=== PATIENT | female | born 1985 | race Asian ===

== ENCOUNTER 2024-03-05 16:25 | Inpatient (IN) | payer BC, SELFPAY ==
[2024-03-05] VITALS (7 sets, daily range): BP systolic 115–149; BP diastolic 66–99; BMI 27.3; BMI 26.8
--- NOTE | 2024-03-05 14:12 | ED.GENMED ---
History of Present Illness
<Nelly Ramires PA-C - Last Filed: 03/06/24 11:12>
General
Chief Complaint: Abdominal Pain
Source: patient
Exam Limitations: none
Time Seen by Provider: 03/05/24 14:07
Nursing documentation reviewed up to this point in time: agreed with
History of Present Illness
History of Present Illness:
Patient is a 38-year-old female with history hypertension presenting from [facility] for further evaluation of abdominal pain. Patient states that starting on evening she had upper abdominal pain that was intermittent over the
weekend worse after eating. She states that yesterday evening the pain was constant and persisted throughout the night. When she woke up this morning the pain was more severe and she had a few episodes of vomiting. Patient went to the emergency
department at [facility] earlier this morning for evaluation. She had lab work, abdominal ultrasound, and CT scan of abdomen which showed findings consistent with choledocholithiasis and concern for CBD obstruction. She was sent to the
[facility] ED for admission for likely ERCP with Dr. Hunter.
Patient denies any fevers, chills, or urinary symptoms. Patient denies any chest pain or shortness of breath
Patient has no known drug allergies
Review of Systems
<Nelly Ramires PA-C - Last Filed: 03/06/24 11:12>
Review of Systems
Allergies reviewed?: Yes
All Other Systems: ROS reviewed and negative except as documented in HPI and ROS
Phy Exam
<Nlely Ramires PA-C - Last Filed: 03/06/24 11:12>
Physical Exam
Physical Exam:
Vitals: Hypertensive, otherwise vital signs stable. Afebrile
General: Patient is well appearing, no acute distress
Skin: Warm and dry, no rashes or lesions
Head: Normocephalic, atraumatic
Eyes: Sclera nonicteric. EOMs intact. No nystagmus.
Throat: Protecting airway
Neck: Normal ROM, no cervical spine tenderness, no meningismus
Cardiac: Regular rate and rhythm, no murmurs.
Pulm: Normal respiratory effort, no wheezes, rales, rhonchi heard on exam.
Abdomen: Abdomen soft. Moderate epigastric and right upper quadrant abdominal pain without rebound tenderness or guarding. No CVA tenderness
Extremities: No evidence of cyanosis or edema. Great distal pulses
Neuro: AAOx3. CN II-XII intact. No focal neurologic deficits.
Psychiatric: Normal affect.
Course
<Nelly Ramires PA-C - Last Filed: 03/06/24 11:12>
Orders/Labs/Results
Orders:
Orders
03/05/24 Dinner
Clear Liquid
At Your Request: Full Participation
Does patient need a safe tray?: Yes
03/05/24 15:01
0.9% Sodium Chloride 1000 ml [Nss] 1,000 ml IV BOLUS
Ketorolac [Toradol] 15 mg IV NOW STA
03/05/24 16:01
Admit/Transfer Patient As Directed
Co-Sign Provider:
Level of Care: Inpatient admission
Assign to:: Medical/Surgical
Physician / Group: nagi hyman
Diagnosis: cbd stone obstructing, transamnittis, choldeocholithiasis
Reason for Hospitalization: cbd stone obstructing, transamnittis, choldeocholithiasis
Expected length of stay greater than two midnights?: Yes
ELOS- Estimated Length of Stay in days: 3
I certify the patient meets the requirements for IP care: Yes
Code Status As Directed
Resuscitation Status: Full Code
03/05/24 16:05
GASTROINTESTINAL CONSULT Routine
Consulting Provider: James Navarro
Was physician already notified: Yes
Reason for consult: obstructing cbd stone
03/05/24 17:31
0.9% Sodium Chloride 1000 ml [Nss] 1,000 ml IV 100 mls/hr
HYDROmorphone [Dilaudid] 0.5 mg IV Q4HPRN PRN
HYDROmorphone [Dilaudid] 1 mg IV Q4HPRN PRN
Ondansetron Injectable [Zofran] 4 mg IV Q6HPRN PRN
03/05/24 17:31
Activity As Directed
Activity Level: As Tolerated
Intake/ Output As Directed
Frequency: Per unit guidelines
Pneumatic Compression Sleeves As Directed
Type: Knee high
Vital Signs As Directed
Frequency: Per unit guidelines
Pt Eval And Treat Routine
Activity Level: As Tolerated
DX Deep Vein Thrombosis Video Routine
03/05/24 22:00
Losartan [Cozaar] 25 mg PO HS
norethindrone-ethin estradiol [Nortrel /35 (21)] 1 tablet PO HS
03/06/24 Breakfast
NPO
Allow oral meds: Yes
Allow clear liquids: 4hrs prior to procedure
NPO for procedure after (time): midnight for GI Procedure tomorrow
Comment: may have unrestricted clear liquids up to 4 hrs prior to scheduled proc
03/06/24 06:11
Cardiovascular Evaluation IN AM
Complete Blood Count/With Diff IN AM
Prothrombin Time IN AM
03/06/24 08:00
Losartan [Cozaar] 50 mg PO DAILY
03/06/24 10:00
Surgical Procedure As Directed
Surgical Procedure: ERCP
03/07/24 06:00
Complete Blood Count/With Diff IN AM
Vital Signs
Initial and Last Documented VS:
Initial Vital Signs
Temp Pulse Resp BP Pulse Ox
98.8 F 72 18 144/89 100
03/05/24 13:57 03/05/24 13:57 03/05/24 13:57 03/05/24 13:57 03/05/24 13:57
Last Documented Vital Signs
Temp Pulse Resp BP Pulse Ox
98.3 F 77 18 119/88 69
03/06/24 07:00 03/06/24 07:00 03/06/24 07:00 03/06/24 10:53 03/06/24 10:53
<Елена Maier MD - Last Filed: 03/05/24 15:01>
Orders/Labs/Results
Orders:
Orders
03/05/24 Dinner
Clear Liquid
At Your Request: Full Participation
Does patient need a safe tray?: Yes
03/05/24 15:01
0.9% Sodium Chloride 1000 ml [Nss] 1,000 ml IV BOLUS
Ketorolac [Toradol] 15 mg IV NOW STA
03/05/24 16:01
Admit/Transfer Patient As Directed
Co-Sign Provider:
Level of Care: Inpatient admission
Assign to:: Medical/Surgical
Physician / Group: nagi hyman
Diagnosis: cbd stone obstructing, transamnittis, choldeocholithiasis
Reason for Hospitalization: cbd stone obstructing, transamnittis, choldeocholithiasis
Expected length of stay greater than two midnights?: Yes
ELOS- Estimated Length of Stay in days: 3
I certify the patient meets the requirements for IP care: Yes
Code Status As Directed
Resuscitation Status: Full Code
03/05/24 16:05
GASTROINTESTINAL CONSULT Routine
Consulting Provider: James Navarro
Was physician already notified: Yes
Reason for consult: obstructing cbd stone
03/05/24 17:31
0.9% Sodium Chloride 1000 ml [Nss] 1,000 ml IV 100 mls/hr
HYDROmorphone [Dilaudid] 0.5 mg IV Q4HPRN PRN
HYDROmorphone [Dilaudid] 1 mg IV Q4HPRN PRN
Ondansetron Injectable [Zofran] 4 mg IV Q6HPRN PRN
03/05/24 17:31
Activity As Directed
Activity Level: As Tolerated
Intake/ Output As Directed
Frequency: Per unit guidelines
Pneumatic Compression Sleeves As Directed
Type: Knee high
Vital Signs As Directed
Frequency: Per unit guidelines
Pt Eval And Treat Routine
Activity Level: As Tolerated
DX Deep Vein Thrombosis Video Routine
03/05/24 22:00
Losartan [Cozaar] 25 mg PO HS
norethindrone-ethin estradiol [Nortrel 1/35 (21)] 1 tablet PO HS
03/06/24 Breakfast
NPO
Allow oral meds: Yes
Allow clear liquids: 4hrs prior to procedure
NPO for procedure after (time): midnight for GI Procedure tomorrow
Comment: may have unrestricted clear liquids up to 4 hrs prior to scheduled proc
03/06/24 06:11
Cardiovascular Evaluation IN AM
Complete Blood Count/With Diff IN AM
Prothrombin Time IN AM
03/06/24 08:00
Losartan [Cozaar] 50 mg PO DAILY
03/06/24 10:00
Surgical Procedure As Directed
Surgical Procedure: ERCP
03/07/24 06:00
Complete Blood Count/With Diff IN AM
Vital Signs
Initial and Last Documented VS:
Initial Vital Signs
Temp Pulse Resp BP Pulse Ox
98.8 F 72 18 144/89 100
03/05/24 13:57 03/05/24 13:57 03/05/24 13:57 03/05/24 13:57 03/05/24 13:57
Last Documented Vital Signs
Temp Pulse Resp BP Pulse Ox
98.3 F 77 18 119/88 69
03/06/24 07:00 03/06/24 07:00 03/06/24 07:00 03/06/24 10:53 03/06/24 10:53
<Nelly Ramires PA-C - Last Filed: 03/06/24 11:12>
MDM/Problems Addressed
Differential Diagnosis Includes:
Not limited to: Choledocholithiasis, biliary colic, cholecystitis, cholangitis, pancreatitis
MDM/Problems Addressed:
38 year old female presenting from [facility] emergency department with 3 days of intermittent upper abdominal pain w/ associated nausea and vomiting becoming constant this morning. Seen at [facility]'s emergency department earlier today where imaging
and labs showed choledocholithiasis and concern for CBD obstruction. Case was discussed with Dr. Hunter at that time and patient was sent for admission for GI consult/likely ERCP. Patient with mild abdominal pain at this time. Afebrile with stable
vital signs. Patient nontoxic appearing. Did review labs performed at [facility] which so no evidence of leukocytosis. Hyperbilirubinemia and transaminitis noted. Will get IV access, give fluids and toradol. Discussed with GI, Dr. Hunter. Patient
will be admitted to hospitalist service for likely ERCP tomorrow. Patient accepted to hospitalist service.
Chronic conditions affecting care:
Hypertension
Acute Exacerbation and/or Progression of Chronic Illness:
Acute hypertensive
<Nelly Ramires PA-C - Last Filed: 03/06/24 11:12>
*Pulse Oximetry
Patient hypoxic: no
*EKG
Interpreted by ED Provider?: NA
*Front Office Clerk Interpretation
Rate: Front Office Clerk- N/A
*Critical Care Note
Total Time (30-74mins, 75-104mins- exclusive of procedures): Not Applicable
Data Reviewed
Review of Other/Old Records Reveals: Labs (Labs from [facility] performed today. ), Records and Radiology Studies
Source: previous hospital records
<Nelly Ramires PA-C - Last Filed: 03/06/24 11:12>
Patient Management
Discussion with other providers: Hospitalist and Practice Representative (GI- Dr. Hunter)
Escalation/DeEscalation of care consider admission/obs:
Admit for GI consult and likely ERCP tomorrow
ED Attending Note
<Nelly Ramires PA-C - Last Filed: 03/06/24 11:12>
-
Portions of this chart may have been created with voice recognition software.� Occasional wrong word or��sound alike� substitutions may have occurred due to the inherent limitations of voice recognition software.
<Елена Maier MD - Last Filed: 03/05/24 15:01>
ED Attending Note
Patient seen and examined by attending physician: Yes
I performed the substantive portion of visit, reviewed & personally made and approve the management plan that is documented in note by myself or CHACHA.: Yes
ED Attending Note:
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 Seen at [facility] today, noted to have microscop hematuria, obstructing bile duct stone. Pt with hx biliary
stones that were always asx. labs, imaging reviewed, sent to for Dr Hamilton to do ERCP. On exam, mild pain, no n andin fact she is hungry. Abd soft, mild upper abd ttp, no r/g. Will medicae, hydrate, arrange for ERCP.
Discharge Plan
Departure
Patient Disposition: Admit
Date of Disposition: 03/05/24
Time of Disposition: 15:03
Presentation/result/management discussed w/ accepting MD/DO: Hospitalist
Discharge Problem:
Choledocholithiasis
Interventions
Interventions:
*Risk Screen - Suicide Last Done: 03/05/24 13:57
*General Assessment Last Done: 03/05/24 13:57
*Neglect/Abuse Screening Last Done: 03/05/24 13:57
*ED COVID-19 Vaccine History Last Done: 03/05/24 18:19
*Nursing Disposition Last Done: 03/05/24 17:20
XM-Obdrhs-Dlvamwsjng Assessment Last Done: 03/05/24 15:05
Discharge Date and Time
Discharge Date/Time: 03/05/24 17:20
[2024-03-05] MEDS: NSS 1000 IV ×2 (15:12→18:01)
[2024-03-05] MEDS: TORADOL 15 MG IV (15:12)
--- NOTE | 2024-03-05 15:23 | HPS.HSE ---
Addendum entered and electronically signed by Je Persaud MD 03/05/24 17:33:
I saw and examined the patient.
The SUPERVISOR [employer] or PA's note was reviewed and I agree with the note.
Comment:
38F HTN, Mucinous cyst right ovary s/p oophorectomy at 18 wks p/w RUQ abd pain persistent worsening over 5 days with associate nausea vomiting. Evaluated at [facility] she was found to have CBD dilation with associate transaminitis prompting
transfer to for ERCP not available at [facility]. Pain since improved with IV toradol given in ED. VSS
Physical Exam
General: No pallor, cyanosis, or jaundice.
HEENT: Throat clear. PERRLA Normocephalic atraumatic
NECK: Supple. No JVD Carotid Bruits
RESPIRATORY: Lungs clear to auscultation. No crackles wheezes stridor
CVS: S1, S2 normal. RRR. No murmur, rub or gallop.
ABDOMEN: Soft, RUQ tenderness No distension. BS+/normal.
EXTREMITIES: No peripheral cyanosis or edema.
GRAIN ORIGINATION SPECIALIST: AOx3. No focal deficits.
#Choledocholithiasis
#Biliary Obstruction
#Transaminitis
#HTN
Pain control
Blood pressure control
Antiemetics
GI eval appreciated Clear Liquid diet for now, npo after midnight for ERCP
Monitor LFTs
Original Note:
Family Physician
-
Family Physician: Phillip Gutierrez
Chief Complaint
-
Abd pian, nausea, known cbd stone from prior ER
History of Present Illness
38 yr old female with Upper abd pain right sided to mid epigastric thru to back with belching and nausea that started on and continues, assoc with intermittenly. She does report it gets worse after she eats. She was at [facility] today and
noted to have microscop hematuria, obstructing bile duct stone distal Cbd 4x10 mm with Cbd dilation 11 mm. She had imaging reviewed, sent to for Dr Hamilton to do ERCP in am . she denies fever, chills, cp, palpitations, sob, cough nausea or
urinary symptoms. She has PMH HTN, Mucinous cyst right ovary with removal when 18 weeks via laparoscopy /right oophorectomy, hx abdominoplasty
Medical History
Past Medical History
Past Medical History: Reports Other
Additional Past Medical History:
HTN
Mucinous cyst right ovary with removal when 18 weeks via laparoscopy /right oophorectomy, hx abdominoplasty
Past Surgical History: Reports Other
Additional Past Surgical History:
Mucinous cyst right ovary with removal when 18 weeks via laparoscopy /right oophorectomy, hx abdominoplasty
Social History
Tobacco: Non-smoker
Alcohol: None
Drug: None
Personal:
Living: With Family
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
Family History
Family History: Other (mother HTN, HLD)
Allergies / Home Medications
Allergies reflects when Allergies were last updated in [employer].
Home Medications with original date entered in [employer]
Allergy/Medication List:
Allergies
Allergy/AdvReac Type Severity Reaction Status Date / Time
No Known Allergies Allergy Verified 03/05/24 13:56
Home Medications
cholecalciferol (vitamin D3) 125 mcg (5,000 unit) tablet (Vitamin D3) 125 mcg PO DAILY 03/05/24
ciprofloxacin HCl 500 mg tablet 500 mg PO BID 03/05/24
losartan 25 mg tablet 25 mg PO HS 03/05/24
losartan 25 mg tablet 50 mg PO DAILY 03/05/24
norethindrone 1 mg-ethinyl estradiol 35 mcg (21) tablet (Nortrel) 1 tab PO HS 03/05/24
ondansetron 4 mg disintegrating tablet 4 mg PO Q6HPRN PRN nausea 03/05/24
Review of Systems
-
History Source: Patient
A 12 point ROS was completed and negative except as noted: Yes
Constitutional: Denies Fever or Chills
EENT: Denies Sore Throat or Runny Nose
Respiratory: Denies Cough or Trouble Breathing
Cardiac: Denies Chest Pain or Palpitations
Abdomen/GI: Reports Abdominal Pain (mid epigstric to ruq), Nausea and Vomiting (x1 on tuesday ); Denies Diarrhea
: Denies Dysuria, Frequency, Flank Pain, Incontinence or Difficulty Voiding
Musculoskeletal: Denies Joint Pain or Edema
Skin: Denies Itching or Rash
Neurological: Denies Dizzy or Headache
Endocrine: Reports No Symptoms
Hematologic/Lymphatic: Reports No Symptoms
Psych: Reports Calm
Physical Exam
Vital Signs
Vital Signs
Temp Pulse Resp BP Pulse Ox
98.8 F 69 18 136/94 100
03/05/24 13:57 03/05/24 15:04 03/05/24 15:04 03/05/24 15:04 03/05/24 15:04
Physical Exam
General: Conversant and Pain; No Fever or Chills
HEENT: NormoCephalic, Anicteric, Moist mucous membranes, Jeannette Conjunctivae and No Ptosis
Respiratory: Clear; No Wheezes, Rales or Rhonchi
Cardiac: S1/S2 and Regular Rhythm; No Murmur, Rub, Gallop or Peripheral Edema
Breast: Deferred by me
GI: Soft, Non Distended, Normal Bowel Sounds, Tender (RUQ) and No Hepatosplenomegaly
Rectal: Deferred by Provider
Genito-urinary: Deferred by me
Musculoskeletal: No Clubbing, No Cyanosis and No Edema
Skin: Warm and Dry; No Rash
Neuro: AO x 3, No Motor Deficits and No Sensory Deficits; No Slurred Speech, Facial Droop or Tremors
Psych: Calm
Impression/Plan
-
Impression/plan;
Admit to Med Surg
#Acute biliary dilation with distal CBD stone/ acute choldeocholithiasis with Acute Transaminitis
WBC per labs from out pt Wbc 8.9, hgb 13.8, creat 0.76 k 3.9 na 136( scanned into chart)
AST 228, Alt 129, alk 129 T bili 2.8, direct 1.9
-NPO after midnight,, okay for clear per GI tonight
-Iv dilaudid, iV zofran
- ERCP in am
-Consult Gi- Dr Hunter Aware
- chcek cbc , cmp in am
scanned Ct abdomen / pelvis in chart: Intrahepatic /Extrahepatic biliary ductal dilation and choledocholithiasis. no acute choleycystitis
11 mm cbd dilation. distal cbd stone 4x10 mm present
#HTN- benign
- cont losartan 50mg am 25mg pm
#Mucinous cyst right ovary with removal when 18 weeks via laparoscopy /right oophorectomy, hx abdominoplasty
dvt proph
- scd's
Full code
--- NOTE | 2024-03-05 16:12 | CON.GI ---
Addendum entered and electronically signed by James Navarro MD 03/05/24 17:23:
I saw and examined the patient.
The HUMAN RESOURCES ASSISTANT or PA's note was reviewed and I agree with the note.
Comment: 38yo female presents with epigastric/CP radiating into her back [place]. She has known gallstones from prior US done to evaluate indigestion sx years ago. Pain did not improve so she went to
[facility]'s ER. CT shows dilated CBD 11mm with distal CBD stone measuring 4 x 10mm. She was referred to since no ERCP available at [facility]. Labs show AST 128, ALT 229, TB 1.9.
REC:
Plan ERCP tomorrow to remove CBD stone
Recommended cholecystectomy after ERCP either inpt vs outpt after d/c
OK for clears for now
Original Note:
Consultation
-
Date/Time Consultation Requested: 03/05/241599
Date/Time Consultation Performed: 03/05/241599
Requesting Provider: JAK Ramirez
Performing Provider: Dr. Navarro/JAK Alva
Reason for Consultation: choledocholithiasis
Medical History
Chief Complaint / HPI
Chief Complaint: RUQ pain
History of Present Illness:
38-year-old female past medical history of hypertension, ovarian cyst, gallstone presents the emergency room after arriving at [facility] for right upper quadrant pain that has been ongoing since last . The patient states
that prior to this she was at [place] [facility] and she developed acute right upper quadrant/epigastric pain that she initially describes as sharp but then became dull. Worse with eating. She started taking omeprazole, Dramamine, Tums and used heating pad
with some mild decrease in discomfort. After eating she developed vomiting. This occurred each day. She started to develop bilirubinuria. After that she decided come to the emergency room. She denies any fevers, chills, melena, hematochezia,
dysphagia or dyne aphasia. No early satiety or unintentional weight loss. She has had no acholic stools. She does know about history of gallstones in the past. She has never had prior symptoms of this. She does not smoke. She does not drink
any alcohol. She does not take any NSAIDs. She had labs performed at [facility] ER that showed WBC of 8.9, hemoglobin 13.8, hematocrit 40.0, platelets 417, sodium 135, potassium 3.9, chloride 100, CO2 25, BUN 5, creatinine 0.76,
glucose 105, total bilirubin of 1.9 with a direct of 0.9, AST 129, ALT of 228, alk phos 159, lipase was 43. Urine hCG was negative, CT of the abdomen and pelvis without contrast shows calculus in distal common bile duct at the level of the ampulla
measuring 4 x 10 mm. No hydronephrosis, no renal calculi. Cholelithiasis without evidence of acute cholecystitis. Ultrasound abdomen was obtained that shows liver at 15 cm. Increased echogenicity. No mass ductal dilatation or contour
nodularity. Hepatopetal flow is seen in the main portal vein. Cholelithiasis without any thickening, adjacent fluid or tenderness. Sludge is present. CBD is 6 mm. No filling defect visualized in the portion that is visualized. No mass or
ductal dilatation of the pancreas. Right kidney with mild hydronephrosis. UA with large leukocytes negative nitrites trace protein moderate bilirubin 40-39 RBCs with 6-9 WBCs few bacteria and few epithelial cells.
Past Medical History
Past Medical History: HTN and Other (gallstone)
Past Surgical History: Other (oopherctomy, c sections, abdomiaplasty)
Social History
Tobacco: Non-Smoker
Alcohol: None
Drug: None
Personal:
Living: With Family
Employment: Employed
Family History
Family History: Other (No Fam Hx of GI malignancy or IBD)
Allergies / Home Medications
Allergy/AdvReac Type Severity Reaction Status Date / Time
No Known Allergies Allergy Verified 03/05/24 13:56
�Medication �Instructions �Recorded
cholecalciferol (vitamin D3) 125 125 mcg PO DAILY 03/05/24
mcg (5,000 unit) tablet (Vitamin
D3)
ciprofloxacin HCl 500 mg tablet 500 mg PO BID 03/05/24
losartan 25 mg tablet 25 mg PO HS 03/05/24
losartan 25 mg tablet 50 mg PO DAILY 03/05/24
norethindrone 1 mg-ethinyl 1 tab PO HS 03/05/24
estradiol 35 mcg (21) tablet
(Nortrel)
ondansetron 4 mg disintegrating 4 mg PO Q6HPRN PRN nausea 03/05/24
tablet
Review of Systems
-
All other systems: A 12 pt ROS was Negative except as stated above in HPI
Vital Signs
Temp Pulse Resp BP Pulse Ox
98.8 F 69 18 136/94 100
03/05/24 13:57 03/05/24 15:04 03/05/24 15:04 03/05/24 15:04 03/05/24 15:04
Physical Exam
Exam
General: No Apparent Distress
Respiratory: Clear
Cardiac: Regular Rhythm
GI: Soft, Non Distended, Normal Bowel Sounds and Tender (RUQ tenderness)
Musculoskeletal: No Edema
Skin: Warm and Dry
Neuro: AO x 3
Psych: Calm
Results
Diagnostic Image Results:
As in HPI from [facility]
Prior GI Procedures:
EGD: never
Colonoscopy: never
Assessment / Plan
-
38-year-old female past medical history of hypertension, ovarian cyst, gallstone presents the emergency room after arriving at [facility] for right upper quadrant pain that has been ongoing since last . The patient states
that prior to this she was at [place] [facility] and she developed acute right upper quadrant/epigastric pain that she initially describes as sharp but then became dull. Worse with eating. She started taking omeprazole, Dramamine, Tums and used heating pad
with some mild decrease in discomfort. After eating she developed vomiting. This occurred each day. She started to develop bilirubinuria. After that she decided come to the emergency room. She had labs performed at [facility] ER
that showed WBC of 8.9, hemoglobin 13.8, hematocrit 40.0, platelets 417, sodium 135, potassium 3.9, chloride 100, CO2 25, BUN 5, creatinine 0.76, glucose 105, total bilirubin of 1.9 with a direct of 0.9, AST 129, ALT of 228, alk phos 159, lipase was
43. Urine hCG was negative, CT of the abdomen and pelvis without contrast shows calculus in distal common bile duct at the level of the ampulla measuring 4 x 10 mm. No hydronephrosis, no renal calculi. Cholelithiasis without evidence of acute
cholecystitis. Ultrasound abdomen was obtained that shows liver at 15 cm. Increased echogenicity. No mass ductal dilatation or contour nodularity. Hepatopetal flow is seen in the main portal vein. Cholelithiasis without any thickening, adjacent
fluid or tenderness. Sludge is present. CBD is 6 mm. No filling defect visualized in the portion that is visualized. No mass or ductal dilatation of the pancreas. Right kidney with mild hydronephrosis. UA with large leukocytes negative
nitrites trace protein moderate bilirubin 40-39 RBCs with 6-9 WBCs few bacteria and few epithelial cells.
Impression:
Choledocholithiasis
Gallbladder sludge
Elevated LFTs
Plan:
-Clear liquids tonight, NPO after midnight
-CBC, BMP, LFTs, PT/INR in am
-ERCP planned for tomorrow
-Further recommendations to follow
-
-
Thank you for consultation and allowing me to participate in the patient's care. Please call the senior solutions workflow consultant GI physician during the after hours with any questions or concerns.
[2024-03-05] MEDS: PROTONIX IV 40 MG IV (17:50)
[2024-03-05] MEDS: TORADOL 30 MG IV (17:50)
[2024-03-05] MEDS: NSS (PRESERVATIVE FREE) 10 ML IV (17:50)
[2024-03-05] MEDS: ZOFRAN 4 MG IV (17:51)
[2024-03-05] MEDS: BENADRYL 25 MG IV (18:13)
[2024-03-05] MEDS: PEPCID 20 MG IV (20:32)
[2024-03-05] MEDS: NSS (PRESERVATIVE FREE) 8 ML IV (20:33)
[2024-03-05] MEDS: COZAAR 25 MG PO (21:15)
[2024-03-06] VITALS (8 sets, daily range): BP systolic 102–126; BP diastolic 62–91
[2024-03-06] MEDS: NSS 1000 IV ×2 (06:05→17:38)
[2024-03-06 06:34] LABS: % Basophils 0.1 % (0-2); % Eosinophils 1.5 % (0-6); % Immature Granulocytes 0.3 % (0-0.5); % Lymphocytes 31.2 % (20.5-51.1); % Monocytes 3.9 % (1.7-9.3); Absolute Eosinophils 0.2 10^3/uL (0-0.7); Absolute Lymphocytes 3.1 10^3/uL (1.2-3.4); Absolute Monocytes 0.4 10^3/uL (0.1-0.6); Absolute Neutrophils 6.2 10^3/uL (1.4-6.5); Hematocrit 33.1 % (37.0-47.0); Hemoglobin 11.3 g/dL (12.0-16.0); Mean Corp Hgb Conc. 34.1 g/dL (33.0-37.0); Mean Corpuscular Hgb 30.7 pg (27.0-31.0); Mean Corpuscular Volume 89.9 fL (81.0-99.0); Mean Platelet Volume 9.1 fL (7.4-10.4); Nucleated Red Blood Cells % 0 %; Platelet Count 335 10^3/uL (130-400); Red Blood Cell Count 3.68 10^6/uL (4.20-5.40); Red Cell Dist. Width 12.4 % (11.5-14.5); White Blood Cell Count 9.8 10^3/uL (4.8-10.8)
[2024-03-06 06:43] LABS: PT 14.3 Sec (11.4-14.6)
[2024-03-06 06:56] LABS: ALT (SGPT) 183 U/L (0-35); AST (SGOT) 79 U/L (14-36); Albumin 3.7 g/dl (3.5-5.0); Alkaline Phosphatase 139 U/L (38-126); Blood Urea Nitrogen 10 mg/dl (7-17); Calcium 8.9 mg/dl (8.4-10.2); Carbon Dioxide 20 mmol/L (22-30); Chloride 110 mmol/L (98-107); Direct Bilirubin 0.4 mg/dl (0.0-0.4); Estimated Creatinine Clearance 113 ml/min; Glucose 72 mg/dl (70-99); HDL Cholesterol 49 mg/dl; LDL Cholesterol, Calculated 109 mg/dl; Potassium 4.1 mmol/L (3.5-5.1); Sodium 139 mmol/L (135-145); Total Bilirubin 1.1 mg/dl (0.2-1.3); Total Cholesterol 179 mg/dl (50-199); Total Protein 6.5 g/dl (6.3-8.2); Triglyceride 109 mg/dl (10-149); Very Low Density Lipoprotein 21 mg/dl (0-30); eGFR > 60.00
--- NOTE | 2024-03-06 07:10 | W.PN.HOSP.TC ---
Today's Communication/Plan
-
surgery eval
pain control
antiemetics
diet as per GI
monitor LFTs
Assessment / Plan
Assessment / Plan
Physical Exam
General: No pallor, cyanosis, or jaundice.
HEENT: Throat clear. PERRLA Normocephalic atraumatic
NECK: Supple. No JVD Carotid Bruits
RESPIRATORY: Lungs clear to auscultation. No crackles wheezes stridor
CVS: S1, S2 normal. RRR. No murmur, rub or gallop.
ABDOMEN: Soft, tenderness No distension. BS+/normal.
EXTREMITIES: No peripheral cyanosis or edema.
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
38F HTN, Mucinous cyst right ovary s/p oophorectomy at 18 wks p/w RUQ abd pain persistent worsening over 5 days with associate nausea vomiting. Evaluated at [facility] she was found to have CBD dilation with associate transaminitis prompting
transfer to for ERCP not available at [facility]. Pain since improved with IV toradol given in ED. VSS
#Acute biliary dilation with distal CBD stone/ acute choldeocholithiasis with Acute Transaminitis
#Mild Transaminitis
-GI eval appreciated ERCP performed 03/06, cont diet as per GI
-Surgery eval requested for potential cholecystectomy
-Iv dilaudid, iV zofran
-Monitor LFTs
scanned Ct abdomen / pelvis in chart: Intrahepatic /Extrahepatic biliary ductal dilation and choledocholithiasis. no acute choleycystitis
11 mm cbd dilation. distal cbd stone 4x10 mm present
#HTN
- cont losartan 50mg am 25mg pm
#Hx Mucinous cyst right ovary with removal when 18 weeks via laparoscopy /right oophorectomy, hx abdominoplasty
dvt proph
- scd's
Full code
Discussed with patient's Soby at bedside
I spent a total of 50 minutes with the patient or on the floor. More than 50% of this time involved counseling and coordination of care.
Anticipated Discharge: 24 - 48 hours
Subjective/Interval History
-
Date of Service: March 06, 2024
Lethargic but arousable following ERCP. Soby present at bedside during evaluation reports overall improvement in symptoms, tolerated clear liquid diet.
Objective Data
-
Labs:
Laboratory Results
03/06/24
06:11
WBC 9.8
Hgb 11.3 L
Hct 33.1 L
Plt Count 335
PT 14.3
INR 1.10
Sodium 139
Potassium 4.1
Chloride 110 H
Carbon Dioxide 20 L
BUN 10
Creatinine 0.6
Glucose 72
Calcium 8.9
Total Bilirubin 1.1
AST 79 H
ALT 183 H
Alkaline Phosphatase 139 H
Vital Signs:
Vital Signs
Temp Pulse Resp BP Pulse Ox
98.5 F 72 16 115/66 97
03/05/24 23:00 03/05/24 23:00 03/05/24 23:00 03/05/24 23:00 03/05/24 23:00
[2024-03-06] MEDS: NSS (PRESERVATIVE FREE) 8 ML IV ×2 (08:15→20:35)
[2024-03-06] MEDS: PEPCID 20 MG IV ×2 (08:15→20:34)
--- NOTE | 2024-03-06 09:24 | PTOTSP ---
Spoke with RN, who confirms the patient is independent without mobility issues. PT evaluation not warranted, will sign off. Please reconsult if changes in functional status occur.
[2024-03-06] MEDS: DILAUDID 0.5 MG IV (12:06)
[2024-03-06] MEDS: COMPAZINE 5 MG IV (13:34)
--- NOTE | 2024-03-06 13:48 | CON.GS ---
Addendum entered and electronically signed by Bang Valdes MD 03/06/24 16:03:
Patient seen and examined.
Patient is a 38 yo F with a PMH notable for HTN, s/p x 2 c/b hemorrhage and RIGHT oophorectomy in 2014, and s/p abdominoplasty with diastases repair and 2020. Ms. Romano initially presented to [facility] on 03/05 with 3 to
4 days of postprandial epigastric and RUQ abdominal pain. Associated jaundice. She denies any nausea, vomiting, pale stools, or tea colored urine. She denies any prior episodes of similar abdominal pain. She underwent an ERCP today with removal
of sludge, without obvious stones, and what appears to be a patent cystic duct.
Gen: NAD
Abd: soft, mild tenderness in RUQ, ND, non-peritoneal, incisions well healed
Patient is a 38 yo F p/w choledocholithiasis
The natural history and pathophysiology of biliary and stone disease was discussed. Workup thus far including labs and imaging was reviewed. Role of cholecystectomy in preventing future episodes of cholecystitis and choledocholithiasis was
reviewed. Recommend cholecystectomy. We reviewed a laparoscopic cholecystectomy with possible cholangiogram. The procedure itself, as well as the risks, benefits, and alternatives was reviewed. Typical postprocedural recovery was reviewed.
Patient has been added to the OR schedule tomorrow. Of note, patient and are somewhat hesitant on proceeding with cholecystectomy at this time; they will review their options tonight and finalize decision in the AM.
-- Clears, NPO PM, IVF
-- Will need prophylactic abx
-- Added to OR schedule for lap saida possible IOC tomorrow; ultimate decision pending
Original Note:
Consultation
-
Date/Time Consultation Requested: March 06, 2024 pm
Date/Time Consultation Performed: March 06, 2024:15 pm
Performing Provider: Dr. Valdes / Manuel Dean, Resident
Reason for Consultation: Abdominal Pain
Medical History
-
Chief Complaint: Abdominal Pain
History of Present Illness:
38 yo female with relevant PSHx of two deliveries in 2010 and 2014, Laparotomy with R-ovarian oophorectomy in 2014 and abdominoplasty with diastasis repair on 2020, presenting with for symptomatic cholelithiasis and previous
choledocholithiasis and abdominal pain since last in the afternoon after ingesting fatty foods.
Past Medical History
Past Surgical History: , Gynecological and Other
Social History
Personal:
Living: With Family
Employment: Employed
Family History
Family History: Reviewed & Not Pertinent
Allergies / Home Medications
Allergy/AdvReac Type Severity Reaction Status Date / Time
No Known Allergies Allergy Verified 03/05/24 13:56
�Medication �Instructions �Recorded �Confirmed �Type
cholecalciferol (vitamin D3) 125 125 mcg PO DAILY Supplement 03/05/24 03/05/24 History
mcg (5,000 unit) tablet (Vitamin
D3)
ciprofloxacin HCl 500 mg tablet 500 mg PO BID Infection 03/05/24 03/05/24 History
losartan 25 mg tablet 25 mg PO HS Blood Pressure 03/05/24 03/05/24 History
losartan 25 mg tablet 50 mg PO DAILY Blood Pressure 03/05/24 03/05/24 History
ondansetron 4 mg disintegrating 4 mg PO Q6HPRN PRN nausea 03/05/24 03/05/24 History
tablet
norethindrone 1 mg-ethinyl 1 tab PO HS control 03/06/24 03/06/24 History
estradiol 35 mcg tablet (Alyacen)
Review of Systems
-
Unable to obtain full review of systems at this time due to: Other
History Source: Patient and Family
All other systems: Negative unless noted
Constitutional: Fatigue, Sleep Disturbance and Chills
Abdomen/GI: Abdominal Pain, Nausea, Constipated and Pain
: Flank Pain and Dark Urine
Musculoskeletal: Muscle Pain
Skin: No Symptoms
Neurological: Weakness
A 10 point review of systems was completed, and was negative except as per HPI.
Physical Exam
Vital Signs
Temp Pulse Resp BP Pulse Ox
36.5 C 76 16 121/71 98
03/06/24 12:22 03/06/24 12:22 03/06/24 12:22 03/06/24 12:22 03/06/24 12:22
03/05/24 03/06/24 03/07/24
06:59 06:59 06:59
Actual Weight 66.406 kg
Body Mass Index (BMI) 26.8
Lab Results
03/06/24 06:11
03/06/24 06:11
WBC 9.8 10^3/uL (4.8-10.8) 03/06/24 06:11
Hgb 11.3 g/dL (12.0-16.0) L 03/06/24 06:11
Hct 33.1 % (37.0-47.0) L 03/06/24 06:11
Plt Count 335 10^3/uL (130-400) 03/06/24 06:11
Abs Immat Gran (auto) 0.0 10^3/uL (0-0.05) 03/06/24 06:11
Neutrophils % 63.0 % (42.2-75.2) 03/06/24 06:11
Physical Exam
General: Well Developed, Well Nourished, Pain and Other (Sedated)
HEENT: Normocephalic and Anicteric
Respiratory: Non Labored Respirations
GI: Soft, Non Tender, Non Distended, Incisions and Obese
Musculoskeletal: No Clubbing and No Cyanosis
Skin: Warm
Neuro: Awake, Oriented and Sedated
Psych: Calm
Data Reviewed
-
Medical Tests (Nuc Med, Echo etc): Image Personally Visualized and interpreted, Discussed with Physician, Discussed with Patient and Discussed with Family
Labs: Labs Reviewed by me, Discussed with Physician, Discussed with Patient and Discussed with Family
Old Records: Reviewed
Critical Care Time (in minutes): ~15 min
Total Time Spent with Patient (in minutes): ~15 min
Assessment / Plan
-
ASSESSMENT:
38 yo female with relevant PSHx of two deliveries in 2010 and 2014, Laparotomy with R-ovarian oophorectomy in 2014 and abdominoplasty with diastasis repair on 2020, presenting with Acute Cholecystitis episode.
PLAN:
NPO
Close monitoring LFTs/Post ERCP Lipase
Schedule to the OR for possible Lap-Cholecystectomy tomorrow if labs stable
Continue IV Fluid Hydration
Continue Pre-Operatory supportive care
Multimodal pain control analgesia
Start DVT ppx
[2024-03-06] MEDS: COZAAR 25 MG PO (22:04)
[2024-03-06] MEDS: NON-FORMULARY ITEM 1 TABLET PO (22:05)
[2024-03-07] VITALS (9 sets, daily range): BP systolic 119–134; BP diastolic 69–82
[2024-03-07] MEDS: NSS IV (01:26)
[2024-03-07] MEDS: D5/0.45%NSS with KCL 20 MEQ 1000 IV ×3 (01:27→21:15)
[2024-03-07 06:55] LABS: % Basophils 0.3 % (0-2); % Eosinophils 2.2 % (0-6); % Immature Granulocytes 0.3 % (0-0.5); % Lymphocytes 32.7 % (20.5-51.1); % Monocytes 4.8 % (1.7-9.3); % Neutrophils 59.7 % (42.2-75.2); Absolute Eosinophils 0.2 10^3/uL (0-0.7); Absolute Lymphocytes 2.5 10^3/uL (1.2-3.4); Absolute Monocytes 0.4 10^3/uL (0.1-0.6); Absolute Neutrophils 4.6 10^3/uL (1.4-6.5); Hematocrit 29.3 % (37.0-47.0); Hemoglobin 10.1 g/dL (12.0-16.0); Mean Corp Hgb Conc. 34.5 g/dL (33.0-37.0); Mean Corpuscular Hgb 29.8 pg (27.0-31.0); Mean Corpuscular Volume 86.4 fL (81.0-99.0); Mean Platelet Volume 8.8 fL (7.4-10.4); Nucleated Red Blood Cells % 0 %; Platelet Count 328 10^3/uL (130-400); Red Blood Cell Count 3.39 10^6/uL (4.20-5.40); Red Cell Dist. Width 12.2 % (11.5-14.5); White Blood Cell Count 7.7 10^3/uL (4.8-10.8)
[2024-03-07 07:22] LABS: ALT (SGPT) 121 U/L (0-35); AST (SGOT) 40 U/L (14-36); Albumin 3.3 g/dl (3.5-5.0); Alkaline Phosphatase 107 U/L (38-126); Blood Urea Nitrogen 7 mg/dl (7-17); Calcium 8.6 mg/dl (8.4-10.2); Carbon Dioxide 21 mmol/L (22-30); Chloride 109 mmol/L (98-107); Estimated Creatinine Clearance 113 ml/min; Glucose 96 mg/dl (70-99); Magnesium 1.7 mg/dl (1.6-2.3); Phosphorus 2.6 mg/dl (2.5-4.5); Sodium 137 mmol/L (135-145); Total Bilirubin 0.6 mg/dl (0.2-1.3); eGFR > 60.00
[2024-03-07] MEDS: COZAAR 50 MG PO (07:43)
[2024-03-07] MEDS: PEPCID 20 MG IV ×2 (07:44→22:02)
[2024-03-07] MEDS: NSS (PRESERVATIVE FREE) 8 ML IV ×2 (07:44→22:02)
--- NOTE | 2024-03-07 07:53 | W.PN.HOSP.TC ---
Today's Communication/Plan
-
NPO for Cholecystectomy
Discussed with surgery, patient relatively young and healthy awaiting cholecystectomy, primarily surgical patient, will transfer to surgery service and hospitalist service will sign off. Please reconsult as necessary.
Assessment / Plan
Assessment / Plan
Physical Exam
General: No pallor, cyanosis, or jaundice.
HEENT: Throat clear. PERRLA Normocephalic atraumatic
NECK: Supple. No JVD Carotid Bruits
RESPIRATORY: Lungs clear to auscultation. No crackles wheezes stridor
CVS: S1, S2 normal. RRR. No murmur, rub or gallop.
ABDOMEN: Soft, tenderness resolved No distension. BS+/normal.
EXTREMITIES: No peripheral cyanosis or edema.
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
scanned Ct abdomen / pelvis report from [facility] in chart: Intrahepatic /Extrahepatic biliary ductal dilation and choledocholithiasis. no acute choleycystitis
11 mm cbd dilation. distal cbd stone 4x10 mm present
38F HTN, Mucinous cyst right ovary s/p oophorectomy at 18 wks p/w RUQ abd pain persistent worsening over 5 days with associate nausea vomiting. Evaluated at [facility] she was found to have CBD dilation with associate transaminitis prompting
transfer to for ERCP not available at [facility]. Pain since improved with IV toradol given in ED. VSS
#Acute biliary dilation with distal CBD stone/ acute choldeocholithiasis with Acute Transaminitis
#Mild Transaminitis resolving
-GI eval appreciated ERCP performed 03/06, cont diet as per GI
-Surgery eval appreciated patient NPO for cholecystectomy today 03/07, otherwise reports feeling well
-cont IVF support as per surgery
-Iv dilaudid, iV zofran
-Monitor LFTs
#HTN
- cont losartan 50mg am 25mg pm
#Hx Mucinous cyst right ovary with removal when 18 weeks via laparoscopy /right oophorectomy, hx abdominoplasty
dvt proph
- scd's
Full code
Discussed with patient's Soby at bedside
I spent a total of 40 minutes with the patient or on the floor. More than 50% of this time involved counseling and coordination of care.
Discussed with surgery, patient relatively young and healthy awaiting cholecystectomy, primarily surgical patient, will transfer to surgery service and hospitalist service will sign off. Please reconsult as necessary.
Anticipated Discharge: 24 - 48 hours
Subjective/Interval History
-
Date of Service: March 07, 2024
Seen and examined at bedside in no acute distress reports abd pain tenderness resolved. Sitting up comfortably in bed. NPO awaiting cholecystectomy. Denies new acute issues. Soby present during evaluation.
Objective Data
-
Labs:
Laboratory Results
03/07/24
06:39
WBC 7.7
Hgb 10.1 L
Hct 29.3 L
Plt Count 328
Sodium 137
Potassium 4.0
Chloride 109 H
Carbon Dioxide 21 L
BUN 7
Creatinine 0.6
Glucose 96
Calcium 8.6
Total Bilirubin 0.6
AST 40 H
ALT 121 H
Alkaline Phosphatase 107
Vital Signs:
Vital Signs
Temp Pulse Resp BP Pulse Ox
98.1 F 66 18 127/82 100
03/06/24 23:02 03/06/24 22:04 03/06/24 15:00 03/06/24 22:04 03/06/24 23:02
I&O
03/06/24 03/07/24 03/08/24
06:59 06:59 06:59
Intake Total 1680 / 1680
Balance 1680 / 1680
--- NOTE | 2024-03-07 08:56 | W.PN.GS2 ---
Addendum entered and electronically signed by Ousmane Rehman MD 03/07/24 10:20:
I saw and examined the patient independently.
The resident's note was reviewed and I agree with the note, assessment and plan except where noted below.
Comment: See below
Addendum entered and electronically signed by Ousmane Rehman MD 03/07/24 10:16:
This is a 38-year-old female who presented to an outside hospital and found to have choledocholithiasis. She was transferred here for successful ERCP which occurred yesterday. LFTs stable, exam benign.
Will plan for a laparoscopic cholecystectomy and possible cholangiogram today.
We will review her outpatient imaging to confirm that she has residual cholelithiasis and/or sludge.
N.p.o., IV fluids, IV antibiotics ordered on-call to the OR.
Risks/Benefits/Alternatives, expected postoperative course and possible complications (bleeding, infection, injury to surrounding structures, acute/chronic pain) discussed at length. Patient wishes to proceed with surgery. All questions answered.
Consent obtained.
I spent roughly 50 minutes in total for the care of this patient today including direct patient care and counseling, reviewing labs, imaging, coordination of care, as well as documentation.
Original Note:
Today's Communication / Plan
-
*Pt stated she will like to have an imaging study done in order for her to confirm the presence of current gallstones and decide if she will like to proceed with surgical treatment during this admission or F/U outpatient for definitive treatment
subsequently.
Assessment / Plan
-
ASSESSMENT:
Patient is a 38 yo F p/w choledocholithiasis
PLAN:
Clears, NPO PM, IVF
-- Will need prophylactic abx
-- Added to OR schedule for lap saida possible IOC tomorrow; ultimate decision pending
Time Spent
Total Time Spent with Patient (in minutes): ~10min
Subjective Data
-
Date of Service: March 07, 2024
Pt was seen and evaluated this morning at bedside.
No complains this morning
Feeling well
Pt stated Pain resolved
No N/V
*Pt stated she will like to have an imaging study done in order for her to confirm the presence of current gallstones and decide if she will like to proceed with surgical treatment during this admission or F/U outpatient for definitive treatment
subsequently.
Objective Data
-
Intake and Output
03/06/24 03/07/24 03/08/24
06:59 06:59 06:59
Intake Total 1680 / 1680
Balance 1680 / 1680
Intake:
Oral fluids 480 / 480
IV fluids (Total) 1200 / 1200
Other:
Number of approximated MODERATE 3
amounts of urine
Vital Signs
Temp Pulse Resp BP Pulse Ox
36.8 C 66 16 127/81 99
03/07/24 07:00 03/07/24 07:00 03/07/24 07:00 03/07/24 07:43 03/07/24 08:49
Lab Results
03/07/24 06:39
03/07/24 06:39
Calcium 8.6 mg/dl (8.4-10.2) 03/07/24 06:39
Phosphorus 2.6 mg/dl (2.5-4.5) 03/07/24 06:39
Magnesium 1.7 mg/dl (1.6-2.3) 03/07/24 06:39
Total Bilirubin 0.6 mg/dl (0.2-1.3) 03/07/24 06:39
Direct Bilirubin Cancelled 03/07/24 06:00
AST 40 U/L (14-36) H 03/07/24 06:39
ALT 121 U/L (0-35) H 03/07/24 06:39
Alkaline Phosphatase 107 U/L (38-126) 03/07/24 06:39
Total Protein 6.0 g/dl (6.3-8.2) L 03/07/24 06:39
Albumin 3.3 g/dl (3.5-5.0) L 03/07/24 06:39
Physical Exam
-
VITALS: STABLE
PE:
GEN- AAOx3 / In NAD
ABD- Soft, non-distended no guarding, rebound or rigidity
No TTP
--- NOTE | 2024-03-07 16:31 | W.PN.GI.CBS2 ---
Today's Communication / Plan
-
Follow-up with surgery
Assessment / Plan
-
38-year-old female past medical history of hypertension, ovarian cyst, gallstone presents the emergency room after arriving at [facility] for right upper quadrant pain that has been ongoing since last . The patient states
[place] right upper quadrant/epigastric pain that she initially describes as sharp but then became dull. Worse with eating. She started taking omeprazole, Dramamine, Tums and used heating pad
with some mild decrease in discomfort. After eating she developed vomiting. This occurred each day. She started to develop bilirubinuria. After that she decided come to the emergency room. She had labs performed at [facility] ER
that showed WBC of 8.9, hemoglobin 13.8, hematocrit 40.0, platelets 417, sodium 135, potassium 3.9, chloride 100, CO2 25, BUN 5, creatinine 0.76, glucose 105, total bilirubin of 1.9 with a direct of 0.9, AST 129, ALT of 228, alk phos 159, lipase was
43. Urine hCG was negative, CT of the abdomen and pelvis without contrast shows calculus in distal common bile duct at the level of the ampulla measuring 4 x 10 mm. No hydronephrosis, no renal calculi. Cholelithiasis without evidence of acute
cholecystitis. Ultrasound abdomen was obtained that shows liver at 15 cm. Increased echogenicity. No mass ductal dilatation or contour nodularity. Hepatopetal flow is seen in the main portal vein. Cholelithiasis without any thickening, adjacent
fluid or tenderness. Sludge is present. CBD is 6 mm. No filling defect visualized in the portion that is visualized. No mass or ductal dilatation of the pancreas. Right kidney with mild hydronephrosis. UA with large leukocytes negative
nitrites trace protein moderate bilirubin 40-39 RBCs with 6-9 WBCs few bacteria and few epithelial cells.
Impression:
Choledocholithiasis-s/p ERCP 03/06 -Removal of sludge. Likely passed stone. Liver test trending down. Clinically asymptomatic
Cholelithiasis
Plan:
Awaiting lap saida today
Continue follow-up LFT
Will sign off. Please call us back if any questions
Total Time Spent with Patient (in minutes): 35
Subjective
Subjective
Date of Service: March 07, 2024
Denies any abdominal pain/nausea/vomiting. Awaiting lap saida today
Objective
Data Reviewed
Laboratory Data:
Laboratory Results
03/07/24 06:39
03/07/24 06:39
Laboratory Results
PT 14.3 Sec (11.4-14.6) 03/06/24 06:11
INR 1.10 03/06/24 06:11
Phosphorus 2.6 mg/dl (2.5-4.5) 03/07/24 06:39
Magnesium 1.7 mg/dl (1.6-2.3) 03/07/24 06:39
Total Bilirubin 0.6 mg/dl (0.2-1.3) 03/07/24 06:39
AST 40 U/L (14-36) H 03/07/24 06:39
ALT 121 U/L (0-35) H 03/07/24 06:39
Alkaline Phosphatase 107 U/L (38-126) 03/07/24 06:39
Vital Signs and I&O:
Vital Signs
Temp Pulse Resp BP Pulse Ox
98.3 F 68 16 134/82 98
03/07/24 15:00 03/07/24 15:00 03/07/24 15:00 03/07/24 15:00 03/07/24 15:00
I&O
03/06/24 03/07/24 03/08/24
06:59 06:59 06:59
Intake Total 1680 / 1680
Balance 1680 / 1680
Physical Exam
Physical Exam
GI: Soft, Non Distended and Non Tender
[2024-03-07] MEDS: ZOFRAN 4 MG IV (21:00)
[2024-03-07] MEDS: DILAUDID 0.25 MG IV ×2 (21:01→21:34)
[2024-03-07] MEDS: DILAUDID 0.5 MG IV (21:04)
[2024-03-07] MEDS: TORADOL 15 MG IV (21:10)
--- NOTE | 2024-03-07 21:14 | W.SUR.PREOP ---
Pre-Operative Surgical Note
-
I have examined this patient prior to the performance of the scheduled procedure.
The patient's condition is unchanged from the time of the current History and
Physical and the patient is able to undergo the scheduled procedure.
--- NOTE | 2024-03-07 21:14 | W.IMMPOSTOP ---
Surgical Immed Post Op Note
-
Primary Surgeon: Ousmane Rehman MD
Assisting Surgeon: None
Pre-op Diagnosis: Choledocholithiasis
Post-op Diagnosis: Chronic cholecystitis, choledocholithiasis
Procedure Performed: Laparoscopic cholecystectomy with cholangiogram
Anesthesia Type: General
Specimen / Cultures: Gallbladder and contents
Estimated Blood Loss: 7 cc
Complications: None
Operative Findings: Chronically inflamed and distended gallbladder with periduodenal adhesions to the infundibulum. Critical view of safety obtained prior to a cholangiogram which demonstrated no filling defects. Duct ligated with a 0 PDS Endoloop
as the cystic duct was quite dilated.
POST OP PLAN:
Imaging: None
Labs: Routine AM
Diet: Advance to Regular as tolerated
Analgesia: Tylenol 650mg q6 Carline, Dahiana 5mg q6 PRN, Dilaudid 0.5mg q2h PRN
Neuro/vascular checks: q4h
AC/AP: Hold Therapeutic AC, Ok for DVT PPx
Activity: Ad Elle
Wound/Incisions/Drains: Routine
Abx: continue 24 hours
Dispo: RNF, anticipate discharge home tomorrow
[2024-03-07] MEDS: ROXICODONE 5 MG PO (21:41)
[2024-03-07] MEDS: NON-FORMULARY ITEM 1 TABLET PO (22:02)
[2024-03-07] MEDS: COZAAR PO (22:11)
[2024-03-07] MEDS: COMPAZINE 5 MG IV (22:12)
[2024-03-08 03:15] VITALS: BP 107/65
[2024-03-08] MEDS: COMPAZINE 5 MG IV (06:30)
[2024-03-08] MEDS: DILAUDID 0.5 MG IV (06:31)
[2024-03-08 06:50] LABS: Hematocrit 31.8 % (37.0-47.0); Hemoglobin 11.3 g/dL (12.0-16.0); Mean Corp Hgb Conc. 35.5 g/dL (33.0-37.0); Mean Corpuscular Hgb 30.3 pg (27.0-31.0); Mean Corpuscular Volume 85.3 fL (81.0-99.0); Platelet Count 356 10^3/uL (130-400); Red Blood Cell Count 3.73 10^6/uL (4.20-5.40); Red Cell Dist. Width 12.1 % (11.5-14.5); White Blood Cell Count 11.5 10^3/uL (4.8-10.8)
[2024-03-08 07:21] LABS: ALT (SGPT) 123 U/L (0-35); AST (SGOT) 58 U/L (14-36); Albumin 4.1 g/dl (3.5-5.0); Alkaline Phosphatase 117 U/L (38-126); Blood Urea Nitrogen 4 mg/dl (7-17); Calcium 9.1 mg/dl (8.4-10.2); Carbon Dioxide 20 mmol/L (22-30); Chloride 105 mmol/L (98-107); Estimated Creatinine Clearance 113 ml/min; Glucose 157 mg/dl (70-99); Magnesium 1.9 mg/dl (1.6-2.3); Potassium 4.4 mmol/L (3.5-5.1); Sodium 136 mmol/L (135-145); Total Bilirubin 0.6 mg/dl (0.2-1.3); Total Protein 7.1 g/dl (6.3-8.2); eGFR > 60.00
[2024-03-08] MEDS: NSS (PRESERVATIVE FREE) 8 ML IV (07:24)
[2024-03-08] MEDS: PEPCID 20 MG IV (07:25)
[2024-03-08 07:51] VITALS: BP 128/66
[2024-03-08] MEDS: COZAAR PO (08:22)
[2024-03-08 08:41] LABS: Phosphorus 3.1 mg/dl (2.5-4.5)
--- NOTE | 2024-03-08 08:56 | W.PN.GS2 ---
Today's Communication / Plan
-
*OK for D/C from stand-point, pending tolerate advancement of diet today
Assessment / Plan
-
ASSESSMENT:
Patient is a 38 yo F p/w choledocholithiasis
PLAN:
OK for D/C from stand-point, pending tolerate advancement of diet today
Time Spent
Total Time Spent with Patient (in minutes): ~10min
Subjective Data
-
Date of Service: March 08, 2024
Pt was seen and evaluated at bedside this morning.
No O/N Events reported
Doing well / Had No complains at this time
Minimal/very mild ABD Pain at incision sites / Under controlled with current medication pain analgesia regimen
Tolerating Diet / No N/V or Bloating
No BM/ No Flatus this morning
Objective Data
-
Intake and Output
03/07/24 03/08/24 03/09/24
06:59 06:59 06:59
Intake Total 1680 / 1680 220 / 220
Balance 1680 / 1680 220 / 220
Intake:
Oral fluids 480 / 480 120 / 120
IV fluids (Total) 1200 / 1200 100 / 100
Normosl 100 / 100
Other:
Number of approximated MODERATE 3 1
amounts of urine
Vital Signs
Temp Pulse Resp BP Pulse Ox
36.8 C 52 16 128/66 99
03/08/24 07:51 03/08/24 07:51 03/08/24 07:51 03/08/24 07:51 03/08/24 07:51
Lab Results
03/08/24 06:28
03/08/24 06:28
Calcium 9.1 mg/dl (8.4-10.2) 03/08/24 06:28
Phosphorus 3.1 mg/dl (2.5-4.5) 03/08/24 06:28
Magnesium 1.9 mg/dl (1.6-2.3) 03/08/24 06:
Total Bilirubin 0.6 mg/dl (0.2-1.3) 03/08/24 06:28
Direct Bilirubin Cancelled 03/07/24 06:00
AST 58 U/L (14-36) H 03/08/24 06:
ALT 123 U/L (0-35) H 03/08/24 06:28
Alkaline Phosphatase 117 U/L (38-126) 03/08/24 06:
Total Protein 7.1 g/dl (6.3-8.2) 03/08/24 06:
Albumin 4.1 g/dl (3.5-5.0) 03/08/24 06:28
Physical Exam
-
VITALS: STABLE
PE:
GEN- AAOx3 / In NAD
ABD- Soft, Non-Distended / No Rigidity, Rebound or Guarding / No TTP
Incisions Clean/Dry / No erythema nor drainage / Sutures in place
--- NOTE | 2024-03-08 10:03 | W.PN.GS2 ---
Today's Communication / Plan
-
Dispo planning
Assessment / Plan
-
ASSESSMENT:
Patient is a 38 yo F p/w choledocholithiasisStatus post ERCP and no successful laparoscopic cholecystectomy with cholangiogram (postoperative day 1). Doing well, expected postoperative course.
PLAN:
Will DC home today.
Time Spent
Total Time Spent with Patient (in minutes): 20
Subjective Data
-
Date of Service: March 08, 2024
Interval Events:
No acute events overnight. Slept well. Pain Controlled. Denies Nausea/Vomiting, -bowel function. Tolerating diet.
Objective Data
-
Intake and Output
03/07/24 03/08/24 03/09/24
06:59 06:59 06:59
Intake Total 1680 / 1680 220 / 220
Balance 1680 / 1680 220 / 220
Intake:
Oral fluids 480 / 480 120 / 120
IV fluids (Total) 1200 / 1200 100 / 100
Normosl 100 / 100
Other:
Number of approximated MODERATE 3 1
amounts of urine
Vital Signs
Temp Pulse Resp BP Pulse Ox
98.3 F 52 16 128/66 99
03/08/24 07:51 03/08/24 07:51 03/08/24 07:51 03/08/24 07:51 03/08/24 07:51
Lab Results
03/08/24 06:28
03/08/24 06:28
Calcium 9.1 mg/dl (8.4-10.2) 03/08/24 06:28
Phosphorus 3.1 mg/dl (2.5-4.5) 03/08/24 06:28
Magnesium 1.9 mg/dl (1.6-2.3) 03/08/24 06:28
Total Bilirubin 0.6 mg/dl (0.2-1.3) 03/08/24 06:28
Direct Bilirubin Cancelled 03/07/24 06:00
AST 58 U/L (14-36) H 03/08/24 06:28
ALT 123 U/L (0-35) H 03/08/24 06:28
Alkaline Phosphatase 117 U/L (38-126) 03/08/24 06:28
Total Protein 7.1 g/dl (6.3-8.2) 03/08/24 06:28
Albumin 4.1 g/dl (3.5-5.0) 03/08/24 06:28
Physical Exam
-
GENERAL/NEURO: Awake, Alert, no distress
CHEST: Unlabored breathing on RA
ABDOMEN: Soft, Non-Tender, Non-Distended, Incisions clean dry and intact.
--- NOTE | 2024-03-08 10:17 | OR.RPT ---
Addendum entered and electronically signed by Ousmane Rehman MD 03/12/24 11:56:
Date of operation should read 03/07/2024.
Original Note:
Operative Report
Operative Report
Patient Name: Christina Romano
: 1985
Date of Operation: 03/08/2024
Preoperative Diagnosis: Choledocholithiasis
Postoperative Diagnosis: Choledocholithiasis, chronic cholecystitis
Procedure(s):
Laparoscopic Cholecystectomy with Cholangiogram
Surgeon(s):
Dr. Rehman
Motorboat Mechanic Inboard(s):
None
Anesthesia: General
Estimated Blood Loss: 7 cc
Urine Output: None
Drains/Lines/Implants: None
Specimens:
1. Gallbladder and contents
HPI/Surgical Indications:
This is a 38-year-old female who presented to an outside hospital with abdominal pain and found to have cholelithiasis as well as choledocholithiasis. She was transferred here for ERCP which she underwent on 03/06/2024. After thorough discussion of
risks, benefits, alternatives the patient agreed to pursue an interval laparoscopic cholecystectomy.
Operative Findings: Chronically inflamed and distended gallbladder with periduodenal adhesions to the infundibulum. Critical view of safety obtained prior to a cholangiogram which demonstrated no filling defects. Duct ligated with a 0 PDS Endoloop
as the cystic duct was quite dilated.
Procedure Description:
The patient was brought to the Operating Room and placed in the supine position with one arm tucked. Following uneventful induction of general endotracheal anesthesia, an orogastric tube was placed. The abdomen was prepped and draped in the usual
sterile fashion. A timeout was performed confirming the procedure, consent, and that IV antibiotics were infused and sequential compression devices were confirmed to be on. Case given her history of a previous abdominoplasty with floated umbilicus
we elected not to do a periumbilical incision and enter the abdomen safely using a left upper quadrant Veress needle followed by a right upper quadrant periumbilical 5 mm Optiview entry. Pneumoperitoneum to 15 mmHg pressure was obtained without
difficulty and we confirmed that no injury had occurred during our entry. The patient was positioned in reverse Trendelenberg and rotated with the right side up slightly. Two 5mm trocars were then placed along the right subcostal margin, followed by
a 12 mm epigastric trocar. The gallbladder was fairly distended and there was chronic adhesions to the anterior surface from the lambert-duodenal fat. After lysis of these adhesions, a locking grasping forceps was placed on the fundus of the
gallbladder where it was then retracted cephalad and to the right. Using appropriate grasping instruments, the peritoneum overlying the triangle of Calot was incised and extended superiorly on both the anterior and posterior gallbladder swenson. The
infundibulum was dissected off the cystic plate. The cystic triangle was dissected until a critical view of safety was achieved. The cystic artery was medialized, dissected and controlled with 2 proximal clips and 1 distal. The cystic
duct/gallbladder junction in turn was identified, dissected circumferentially and a clip was placed. As the cystic duct appeared fairly dilated I elected to perform a cholangiogram. A ductotomy was made and a cholangiocatheter on an Steinberg clamp
was inserted into the cystic duct. A C-arm was draped and brought into the field. An intra-operative cholangiogram was performed and was noted to have:
No filling defects in the biliary tree
No significant biliary dilation
Brisk flow of contrast into the duodenum
Normal biliary anatomy
The catheter was then removed and the cystic duct was controlled with a clip followed by a 0 PDS Endoloop. After ensuring both the artery and duct were divided, the gallbladder was freed from the liver using electrocautery. There was no spillage
of bile or stones. The gallbladder bed was inspected and excellent hemostasis was obtained. The gallbladder was extracted through the 12 mm trocar site using an endocatch bag. The abdomen was again irrigated and excellent hemostasis was assured.
All remaining trocars were then removed and the pneumoperitoneum was evacuated. The 12 mm trocar site was closed using 0 PDS suture. All trocar sites were closed at the skin level using 4-0 Monocryl followed by Dermabond. Overall, the patient
tolerated the procedure well and was taken to the Recovery Room postoperatively in stable condition.
I was the attending physician and performed the procedure with no assistance. I was present for all portions of the case
Ousmane Rehman MD
[2024-03-08 11:14] VITALS: BP 125/79
--- NOTE | 2024-03-09 06:57 | CM ---
met with patient and spouse at bedside.patient lives with in house with 2-3 daniel,her bed and bath is on second level,she amb i,is i with her adl's.her pcp is dr fito ortega and she uses [facility] in [place].he has never had
a vn or been to ip rehab in [facility].
patient is sp amina cintron and is stable for dc home with no needs.
== END 2024-03-08 11:21 | disposition home or self-care (01) | DRG 419 ==
LOC: 3 WEST ACU 16:25
PROVIDERS: Clinical Nurse Specialist Family Health; Internal Medicine Gastroenterology; Nurse Practitioner; ADMITTING PHYSICIAN Internal Medicine; ATTENDING PHYSICIAN Surgery; CONSULT PHYSICIAN Specialist; CONSULT PHYSICIAN Surgery; EMERGENCY PHYSICIAN Emergency Medicine; FAMILY PHYSICIAN Internal Medicine
PROC: 0FC98ZZ Extirpation of Matter from Common Bile Duct, Via Natural or Artificial Opening Endoscopic (ICD-10-PCS; 2024-03-06)
PROC: 0F778ZZ Dilation of Common Hepatic Duct, Via Natural or Artificial Opening Endoscopic (ICD-10-PCS; 2024-03-06)
PROC: 0FT44ZZ Resection of Gallbladder, Percutaneous Endoscopic Approach (ICD-10-PCS; 2024-03-07)
PROC: BF101ZZ Fluoroscopy of Bile Ducts using Low Osmolar Contrast (ICD-10-PCS; 2024-03-07)
DX: K80.65 Calculus of gallbladder and bile duct with chronic cholecystitis with obstruction (principal); K83.8 Other specified diseases of biliary tract; I10 Essential (primary) hypertension; Z79.899 Other long term (current) drug therapy
CPT/HCPCS: 88304; 74300; 74330; 76000; 80053; 80061; 82248; 83735; 84100; 85025; 85027; 85610; 96361; 96374; 99285; A4300; C1769; J1610